=== PATIENT | female | born 1955 | race Caucasian/White ===

== ENCOUNTER 2018-09-09 13:35 | Inpatient (IN) | payer OTHER ==
--- NOTE | 2018-09-09 14:50 | EDPHY ---
H & P Stated Complaint: SOB and fatigue [id number], denies Hx Time Seen by Provider: 09/09/18 14:38 HPI/ROS: CHIEF COMPLAINT: Shortness of breath HISTORY OF PRESENT ILLNESS: 67-year-old female presents with shortness of breath. Gradually increasing shortness of breath over the last month. She is now short of breath when walking from one room to the other in her home and needs to stop when climbing 1 flight of stairs. Associated with lack of appetite and a 10-15 lb weight loss. Recently had an upper respiratory infection, including a cough, now resolved. Sx moderate and resolve with rest. No leg swelling/pain, chest or abdominal pain. REVIEW OF SYSTEMS: complete 10 point ROS reviewed and is negative except for the noted elements in the HPI Source: Patient - Personal History Current Tetanus/Diphtheria Vaccine: Yes - Medical/Surgical History Hx Asthma: No Hx Chronic Respiratory Disease: No Hx Diabetes: No Hx Cardiac Disease: No Hx Renal Disease: No Hx Cirrhosis: No Hx Alcoholism: No Hx HIV/AIDS: No Hx Splenectomy or Spleen Trauma: No Other PMH: none - Social History Smoking Status: Heavy smoker Alcohol Use: None Drug Use: None - Physical Exam Exam: General Appearance: Alert, pleasant Eyes: Pupils equal and round, no conjunctival pallor or injection ENT, Mouth: Mucous membranes moist Neck: Normal inspection Respiratory: Few rales at the bases, no wheezing Cardiovascular: Regular rate and rhythm Gastrointestinal: Abdomen is soft and nontender Neurological: A&O, nonfocal, normal gait Skin: Warm and dry, no rash Extremities: Nontender, no pedal edema Psychiatric: Mood and affect normal Constitutional: Initial Vital Signs Temperature (C) 36.7 C 09/09/18 13:43 Heart Rate 82 09/09/18 13:43 Respiratory Rate 18 09/09/18 13:43 Blood Pressure 138/87 H 09/09/18 13:43 O2 Sat (%) 92 09/09/18 13:43 O2 Delivery Mode Nasal Cannula O2 (L/minute) 2 Allergies/Adverse Reactions: No Known Allergies Allergy (Unverified 09/09/18 13:43) Home Medications: Medication Instructions Recorded Azithromycin 250 mg PO DAILY #4 tablet 09/10/18 Ipratropium/Albuterol [Combivent 1 inh IH QID #1 mdi 09/10/18 Respimat Inhal Flora(*)] Nicotine [Nicoderm Cq 7 mg (*)] 7 mg TD DAILY patch 09/10/18 predniSONE 40 mg PO DAILY #8 tablet 09/10/18 Medical Decision Making - Diagnostics Imaging Results: Chest X-Ray 09/09/18 14:40 Impression: Mild peribronchial thickening which can be seen with reactive small airways disease such as bronchitis or asthma. Chest/Thorax CTA 09/09/18 15:26 Impression: 1. No evidence of pulmonary thromboembolic disease. 2. No evidence for acute cardiopulmonary abnormality. 3. Evidence of underlying emphysema bilaterally. Mild peribronchial wall thickening, which could be seen with smoking or mild bronchitis. 4. Other chronic findings, as above. Results called and discussed with Fani Vanessa M.D., on September 09, 2018 at 1629. Imaging: Discussed imaging studies w/ call center receptionist Radiologist, I viewed and interpreted images myself ED Course/Re-evaluation: This patient presents with gradually increasing shortness of breath with a normal lung exam and oxygen saturation of 90% on room air. Stat Chest x-ray is unremarkable. CT pulmonary angiogram ordered because exertional shortness of breath and normal chest x-ray. CT pulmonary angiogram reveals no evidence of pulmonary embolism; COPD present. Symptoms most likely secondary to COPD. A DuoNeb was given. Peak flow performed after the DuoNeb is 140. Patient was ambulated throughout the emergency department and oxygen saturation decreased to 75% on room air. The patient was placed on oxygen. Solumedrol 125mg IV and a repeat albuterol neb given. The hospitalist service was consulted for admission for new dx of COPD and hypoxia. Differential Diagnosis: Differential diagnosis includes though it is not limited to pneumonia, pneumothorax, pulmonary embolism, aortic dissection, pericarditis, acute coronary syndrome. - Data Points Laboratory Results: Laboratory Results 09/09/18 15:00 09/09/18 15:00 Medications Given: Discontinued Medications Albuterol (Proventil Neb) 3 ml IH EDNOW ONE Stop: 09/09/18 18:19 Last Admin: 09/09/18 22:26 Dose: Not Given Albuterol/Ipratropium (Duoneb) 3 ml IH EDNOW ONE Stop: 09/09/18 16:41 Last Admin: 09/09/18 16:49 Dose: 3 ml Albuterol/Ipratropium (Duoneb) 3 ml IH QID [facility] Stop: 03/08/19 20:59 Last Admin: 09/10/18 10:20 Dose: Not Given Enoxaparin Sodium (Lovenox) 40 mg SC DAILY [facility] Stop: 03/09/19 08:59 Last Admin: 09/10/18 08:58 Dose: 40 mg Azithromycin 500 mg/ Sodium (Chloride) 255 mls @ 255 mls/hr IV DAILY [facility] PRN Reason: Protocol Stop: 10/09/18 19:59 Last Admin: 09/10/18 09:04 Dose: 255 mls Methylprednisolone Sodium Succinate (Solu-Medrol) 125 mg IVP EDNOW ONE Stop: 09/09/18 18:19 Last Admin: 09/09/18 19:18 Dose: 125 mg Methylprednisolone Sodium Succinate (Solu-Medrol) 125 mg IVP Q6H [facility] Stop: 09/10/18 07:01 Last Admin: 09/10/18 06:35 Dose: 125 mg Nicotine (Nicoderm Cq) 7 mg TD DAILY [facility] Stop: 03/08/19 18:59 Last Admin: 09/10/18 09:25 Dose: Not Given Pneumococcal Polyvalent Vaccine (Pneumovax 23) 0.5 ml IM .ONCE ONE Stop: 09/10/18 10:40 Last Admin: 09/10/18 12:17 Dose: 0.5 ml Prednisone (Prednisone) 60 mg PO DAILY [facility] Stop: 03/09/19 11:59 Last Admin: 09/10/18 12:15 Dose: 60 mg Tuberculin PPD (Ppd Test Syringe) 5 tu ID ONCE ONE Stop: 09/09/18 18:56 Last Admin: 09/09/18 22:36 Dose: 5 tu Departure - Departure Disposition: Home, Routine, Self-Care Clinical Impression: Chronic obstructive pulmonary disease with acute exacerbation Condition: Fair
[2018-09-09 15:09] LABS: PLATELET COUNT 273 10^3/uL (150-400)
[2018-09-09] MEDS ORDERED: IOPAMIDOL (ISOVUE 370) 100 ML BTL IV ONE (15:37)
[2018-09-09] MEDS ORDERED: IPRATROPIUM/ALBUTEROL 3 ML DEYVIAL IH ONE (16:40)
[2018-09-09] MEDS ORDERED: methylPREDNISolone SOD SUCC 125 MG/2 ML VIAL IVP ONE (18:18)
[2018-09-09] MEDS ORDERED: ALBUTEROL 3 ML DEYVIAL IH ONE (18:18)
[2018-09-09] MEDS ORDERED: oxyCODONE IR 5 MG TAB PO PRN (18:31)
[2018-09-09] MEDS ORDERED: LORazepam 0.5 MG TAB PO PRN (18:31)
[2018-09-09] MEDS ORDERED: PROMETHAZINE HCL 25 MG/ML INJ IVP PRN (18:31)
[2018-09-09] MEDS ORDERED: ONDANSETRON 4 MG/2 ML VIAL IVP PRN (18:31)
[2018-09-09] MEDS ORDERED: ALBUTEROL 3 ML DEYVIAL IH PRN (18:31)
[2018-09-09] MEDS ORDERED: ONDANSETRON DISINTEGRATING 4 MG TAB PO PRN (18:31)
[2018-09-09] MEDS ORDERED: HYDROmorphONE/DILAUDID 1 MG/ML INJ IVP PRN (18:31)
[2018-09-09] MEDS ORDERED: ACETAMINOPHEN 325 MG TAB PO PRN (18:31)
[2018-09-09] MEDS ORDERED: HYDROCODONE/APAP 5/325 TAB PO PRN (18:31)
[2018-09-09] MEDS ORDERED: D50W 25 GM/50 ML SYR IVP PRN (18:33)
[2018-09-09] MEDS ORDERED: TUBERCULIN (PPD) 5 TU/0.1 ML SYRINGE ID ONE (18:55)
--- NOTE | 2018-09-09 18:55 | PDGENHP ---
History and Physical - Chief Complaint sob/HEARD - History of Present Illness 63 yo F with no known pMH presenting with c/o sob and HEARD. Patient notes that these sxs have been present for at least several months but worsening significantly recently. She notes that when she is just sitting and resting she generally feels fine but with walking or any kind of exertion she becomes very short of breath. She gets SOB so quickly that even walking from one room to the other leads to her gasping for air. She sometimes notices wheezing when she is breathing. She has also experienced a 15 pound weight loss over the last several months for reasons that she does not understand. She states she has not had fevers or night sweats. She does have a cough that she states was bad last month but seems to be improving. She has not had swelling or pain in her legs, she has not had chest pain. 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 She lives in [place] usually but has been here in [place] with her daughter and grand daughters for the last 5 months. She has never been diagnosed with any sort of lung or heart problems but also does not see a doctor very often. In ER she was found to desaturate to the 70s with ambulation. History Information - Allergies/Home Medication List Allergies/Adverse Reactions: No Known Allergies Allergy (Unverified 09/09/18 13:43) Home Medications: NK [No Known Home Meds] 09/09/18 [Last Taken Unknown] I have personally reviewed and updated: family history, medical history, social history, surgical history - Past Medical History Additional medical history: none known - Surgical History Reports: no pertinent surgical hx - Family History Positive for: non-pertinent - Social History Smoking Status: Heavy smoker Alcohol Use: None Drug Use: None Additional social history: typically lives in [place], has been here for 5 months Review of Systems Review of Systems: ROS: 10pt was reviewed & negative except for what was stated in HPI & below Physical Exam Physical Exam: Temp Pulse Resp BP Pulse Ox 36.7 C 81 16 125/87 H 92 09/09/18 13:43 09/09/18 14:29 09/09/18 14:29 09/09/18 14:29 09/09/18 18:08 Constitutional: chronically ill appearing, cachectic Eyes: PERRL, anicteric sclera Ears, Nose, Mouth, Throat: moist mucous membranes, poor dentition Cardiovascular: regular rate and rhythym, no murmur, rub, or gallop, No edema Respiratory: reduced air movement, respiratory distress Gastrointestinal: normoactive bowel sounds, soft, non-tender abdomen Genitourinary: no bladder tenderness Skin: warm, normal color Musculoskeletal: full muscle strength Neurologic: AAOx3 Psychiatric: interacting appropriately, not anxious, not encephalopathic Lab Data & Imaging Review 09/09/18 15:00 09/09/18 15:00 WBC 9.30 10^3/uL (3.80-9.50) 09/09/18 15:00 RBC 4.77 10^6/uL (4.18-5.33) 09/09/18 15:00 Hgb 14.7 g/dL (12.6-16.3) 09/09/18 15:00 Hct 45.5 % (38.0-47.0) 09/09/18 15:00 MCV 95.4 fL (81.5-99.8) 09/09/18 15:00 MCH 30.8 pg (27.9-34.1) 09/09/18 15:00 MCHC 32.3 g/dL (32.4-36.7) L 09/09/18 15:00 RDW 13.2 % (11.5-15.2) 09/09/18 15:00 Plt Count 273 10^3/uL (150-400) 09/09/18 15:00 MPV 9.8 fL (8.7-11.7) 09/09/18 15:00 Neut % (Auto) 51.7 % (39.3-74.2) 09/09/18 15:00 Lymph % (Auto) 41.1 % (15.0-45.0) 09/09/18 15:00 [place] % (Auto) 6.0 % (4.5-13.0) 09/09/18 15:00 Eos % (Auto) 0.3 % (0.6-7.6) L 09/09/18 15:00 Baso % (Auto) 0.6 % (0.3-1.7) 09/09/18 15:00 Nucleat RBC Rel Count 0.0 % (0.0-0.2) 09/09/18 15:00 Absolute Neuts (auto) 4.80 10^3/uL (1.70-6.50) 09/09/18 15:00 Absolute Lymphs (auto) 3.82 10^3/uL (1.00-3.00) H 09/09/18 15:00 Absolute Monos (auto) 0.56 10^3/uL (0.30-0.80) 09/09/18 15:00 Absolute Eos (auto) 0.03 10^3/uL (0.03-0.40) 09/09/18 15:00 Absolute Basos (auto) 0.06 10^3/uL (0.02-0.10) 09/09/18 15:00 Absolute Nucleated RBC 0.00 10^3/uL (0-0.01) 09/09/18 15:00 Immature Gran % 0.3 % (0.0-1.1) 09/09/18 15:00 Immature Gran # 0.03 10^3/uL (0.00-0.10) 09/09/18 15:00 D-Dimer < 0.27 ug/mLFEU (0.00-0.50) 09/09/18 15:00 Sodium 140 mEq/L (135-145) 09/09/18 15:00 Potassium 4.2 mEq/L (3.5-5.2) 09/09/18 15:00 Chloride 101 mEq/L (97-110) 09/09/18 15:00 Carbon Dioxide 27 mEq/l (22-31) 09/09/18 15:00 Anion Gap 12 mEq/L (6-14) 09/09/18 15:00 BUN 11 mg/dL (7-23) 09/09/18 15:00 Creatinine 0.6 mg/dL (0.6-1.0) 09/09/18 15:00 Estimated GFR > 60 09/09/18 15:00 Glucose 66 mg/dL (70-100) L 09/09/18 15:00 Calcium 9.8 mg/dL (8.5-10.4) 09/09/18 15:00 NT-Pro-B Natriuret Pep 137 pg/mL (0-125) H 09/09/18 15:00 Visualized and Interpreted Chest x-ray results: Yes Chest X-Ray results: other (mild peribronchial thickening) Visualized and Interpreted imaging results: Yes Interpretation: CTA thorax: no PE, emphysema Assessment & Plan Assessment: 63 yo F with no known PMH presenting with AHRF due to copd exacerbation # acute hypoxic respiratory failure: desaturating to the 70s with ambulation but improved to the 90s on 2L at rest. Suspect this is more of an acute on chronic type picture and due to copd exacerbation as next. No PE or pna on imaging, resp viral panel pending. Does not appear c/w CHF on exam. # copd with acute exacerbation: patient without known copd but exam and imaging c/w this, no wheezing appreciated but essentially no air movement on exam. Duonebs, albuterol nebs, IV steroids and azithromycin started--will transition to oral steroids in the am. She will need to dc on combivent/albuterol and with f/u for pulmonary function testing. Recommended tobacco cessation. # unintentional weight loss: likely pulmonary cachexia, no masses noted on imaging, she does reside in [place] and has never been screened for TB so PPD placed however this is unlikely given lack of imaging findings so will not place on isolation etc. # hypoglycemia: asymptomatic but lower than expected for someone not on hypoglycemic agents, will check q6h glucose overnight # malnutrition: unintentional weight loss and appears cachexic on exam, dietary consult # IP status, suspect she will require > 48 hours stay for eval/mgmt of above FC Patient new to my care. Old records reviewed and summarized as above. Care plan reviewed with ER doctor, further hx obtained from family present at bedside. Patient interviewed with help of toll testboard worker present at bedside.
[2018-09-09] MEDS ORDERED: NICOTINE POLACRILEX 2 MG GUM B PRN (18:57)
[2018-09-09] MEDS ORDERED: methylPREDNISolone SOD SUCC 125 MG/2 ML VIAL IVP SCH (20:00)
[2018-09-09] MEDS: AZITHROMYCIN IV 500 MG in NS 250 ML IV SCH (21:29)
[2018-09-09] MEDS: NICOTINE 7 MG/24 HR PATCH TD SCH (21:35)
[2018-09-09] MEDS: IPRATROPIUM/ALBUTEROL 3 ML DEYVIAL IH SCH (23:08)
[2018-09-10] MEDS: methylPREDNISolone SOD SUCC 125 MG/2 ML VIAL IVP SCH ×2 (01:15→06:35)
[2018-09-10] MEDS: IPRATROPIUM/ALBUTEROL 3 ML DEYVIAL IH SCH ×2 (06:24→10:20)
--- NOTE | 2018-09-10 07:30 | PDMN ---
Medical Necessity Medical necessity: MCG M100 COPD A-2 days acute exacerbation with HEARD, desat to 70's with ambulation, O2 2L > 90%, pt with wheezing, no air movement on exam, wt. loss, anticipate > 2 MN ongoing med nec care- further monitoring, eval and tx.
[2018-09-10 07:54] VITALS: BP 114/54
[2018-09-10] MEDS ORDERED: ENOXAPARIN 40 MG/0.4 ML SYR SC SCH (09:00)
[2018-09-10] MEDS: AZITHROMYCIN IV 500 MG in NS 250 ML IV SCH (09:04)
[2018-09-10] MEDS: NICOTINE 7 MG/24 HR PATCH TD SCH (09:25)
--- NOTE | 2018-09-10 10:22 | ASDISCHSUM ---
Discharge Information Plan Status:Home with No Needs Medically Cleared to Leave: Discharge Date: CM D/C Disposition:Home, Routine, Self-Care ADT D/C Disposition:Home, Routine, Self-Care Projected Discharge Date: Transportation at D/C: Discharge Delay Reason: Follow-Up Date: Discharge Slot: Final Diagnosis: Placement Information Patient Contact Information Contact Name:CHRISTELLE Relationship:Keon Address:[address] [place] [address] Work Phone: City:[place] Alternate Phone: [facility]/Zip Code:[place] [address] Email: Financial Information Financial Class:Self-Pay Primary Plan Desc:SP UNINSURED Primary Plan Number:99 Secondary Plan Desc: Secondary Plan Number: Assessment Information LACE LACE Length of stay for Answers: Less than 1 day current admission Acuity / Level of Answers: Yes Care: Did the patient have an inpatient admission? Comorbidities - select Answers: Other Notes: COPD all that apply # of Emergency department Answers: 1-2 visits in the last 6 months Score: 5 Date Signed: 09/10/2018 10:21 AM Electronically Signed By:Yesika Figueroa Intervention Information
[2018-09-10] MEDS ORDERED: PNEUMOCOCCAL 0.5ML VACCINE VIAL (PNEUMOVAX 23) IM ONE (10:39)
[2018-09-10] MEDS ORDERED: predniSONE 20 MG TAB PO SCH (12:00)
--- NOTE | 2018-09-10 13:05 | GDS ---
[f rep st] DISCHARGE SUMMARY DISCHARGE DIAGNOSES: 1. Acute hypoxemic respiratory failure. 2. Chronic obstructive pulmonary disease with acute exacerbation. 3. Recent unintentional weight loss. 4. Hypoglycemia. 5. Malnutrition. STUDIES AND PROCEDURES DONE: CT angio of the chest. PHYSICAL EXAM: GENERAL: The patient is alert. VITAL SIGNS: Afebrile at 36.8, pulse is 93, respira tory rate 16, blood pressure is 114/54. She is saturating greater than 90% on room air. I have seen and evaluated the patient on the day of discharge. HOSPITAL COURSE: The patient is a 63-year-old female who presented to the emergency room with compla ints of shortness of breath. She was evaluated and diagnosed with: 1. Acute hypoxemic respiratory failure. The patient did require supplemental oxygen at the time of admission. She is now saturating appropriately on room air. She did have a CT scan noting no pulmon marco emboli or congestive heart failure. Respiratory panel was negative as well. 2. Chronic obstructive pulmonary disease with acute exacerbation. Patient was initiated on steroid medication. She has been continued on albuterol as well as azithromycin and prednisone. It was navya mmended that she have tobacco cessation. She has been educated about this. 3. Unintentional weight loss. This is in the setting of likely pulmonary cachexia. She has been in structed to follow up at home when she returns to [place]. 4. Hypoglycemia, asymptomatic, stable at the time of disposition. 5. Malnutrition. Patient admits to not eating as much as she should. DISPOSITION: Patient's symptoms have resolved sooner than anticipated. She will be discharged home independently with her family. I reviewed her discharge and exam with the stone rubber. She will follow up in [place] when she returns. I have recommended that she see a warp trucker there. S he is in agreement with this plan. DISCHARGE MEDICATIONS: Please refer to EMR form. I have provided prescriptions for prednisone as we ll as azithromycin and Combivent. She has also received instructions for tobacco cessation. I spent greater than 35 minutes in the care, coordination, and management of this patient's dispositi on. /[id number]/MODL
== END 2018-09-10 12:42 | disposition home or self-care (01) | DRG 190 ==
LOC: F3N 19:36
PROVIDERS: ADMIT Internal Medicine; ATTEND Internal Medicine
DX: J44.1 Chronic obstructive pulmonary disease with (acute) exacerbation (principal); J96.01 Acute respiratory failure with hypoxia; E46 Unspecified protein-calorie malnutrition; E16.2 Hypoglycemia, unspecified; F17.210 Nicotine dependence, cigarettes, uncomplicated; Z23 Encounter for immunization
CPT/HCPCS: 96374; G0009; J0456; J1650; J2930; J7512; Q9967